=== PATIENT | female | born 1955 | race Caucasian/White ===

== ENCOUNTER 2017-09-19 08:00 | Outpatient (RCR) | payer MEDICARE ==
[2015-05-19 08:28] VITALS: Ht 172.7 cm; Wt 53.5 kg
[~2017-09-19] VITALS: Ht 172.7 cm; Wt 53.5 kg
[~2017-09-19 08:00] MED LIST: ACET-2043; ALBU8.5H IH; ALP25 PO; ALPR-434 PO; ASP325 PO; AUG875 PO; BACL-1; CALC-762 PO; CEP250 PO; CIPR-214 PO; CITA-139 PO; CITA-156 PO; CLI150 PO; CLON-294 PO; CLON-303 *; CLON-303 PO; CLON-308; CLON-308 PO; CLON-390 PO; DIPH-543 PO; FURO-45 PO; FURO-47 PO; GABA-549; HYDR-2966 PO; HYDR-3166 PO; HYDR-319 PO; HYDR-393 PO; HYDR-4228 PO; HYDR-4309 PO; HYDR1TAB PO; IBU200 PO; IBU600 PO; IBUP-56; IBUPROFEN; KET10 PO; LOPE1LIQ49 PO; LOR10/325 PO; LOR5 PO; LOR5/325 PO; METO-734 PO; METO2.5T15 PO; METR-1 PO; MIR; MIRT-22 PO; MIRT-25; MOM PO; MYLL PO; NITR-105 PO; NYST100040 PO; ONDA-2; ONDA-2 PO; ONDA4TAB PO; ONDA4TAB97 PO; OSC600 PO; PAN40 PO; PANT40TA65 PO; PER PO; PHEN118S56 PO; PHEN200T32 PO; POLY17PO PO; POTA-1 PO; POTA-53 PO; POTA20TA85 PO; POTA20TA94 PO; POTA25TA28 PO; PROAIRPT IH; PROM-110 PO; PROM5SYR PO; SULF-198 PO; TAMS0.4C25 PO; TRAM-420; ZOLP-350 PO; ZOLP-358; ZOLP-358 PO; ZOLP-360; [UNRECOGNIZED DRUG - CODE] PO
[2017-09-19 20:50] VITALS: BP 107/74
[2017-09-20] MEDS ORDERED: ONDANSETRON 4 MG ODT TH SL ONE (20:20)
[2017-09-20] MEDS ORDERED: VANCOMYCIN 1 GM ADDVIAL ONE (21:26)
[2017-09-20] MEDS ORDERED: NS(*) 0.9% 250 ML ADDVAN BAG 250 ML ONE (21:26)
[2017-09-20 21:28] VITALS: BP 109/78
[2017-09-20] MEDS ORDERED: VANCOMYCIN 1 GM ADDVIAL 1 GM in NS(*) 0.9% 250 ML ADDVAN BAG 250 ML IVPB ONE (22:00)
[2017-09-20] MEDS ORDERED: IBUP200C71 PO (22:00)
[2017-09-20] MEDS ORDERED: ACET500T68 PO (22:00)
[2017-09-20] MEDS ORDERED: ALBU8.5H IH (22:00)
== END 2017-11-12 10:29 | disposition home or self-care (01) ==
LOC: SPU 08:00
PROVIDERS: ATTEND Emergency Medicine
DX: L03.90 Cellulitis, unspecified (principal)
CPT/HCPCS: 36415; 80202; J3370; J7050; S0119

== ENCOUNTER 2017-09-19 09:18 | Emergency (ER) | payer MEDICARE ==
[2015-05-19 08:28] VITALS: Wt 53.5 kg
--- NOTE | 2017-09-19 09:31 | ER Report ---
History and Physical Time Seen By MD: 09:29 Hx. of Stated Complaint: Patient puntured hand with pering knife and now reports a red streak. Patient reports diminished sensation in left pointer finger. Visibly swollen on left pointer finger nuckle. HPI/ROS CC: Puncture wound hand possible infection HPI: 62-year-old female with past medical history of cellulitis, insomnia, paranoid schizophrenia, anxiety, failure to thrive, drug-seeking behavior, Elissa, back pain, diarrhea, cholecystitis. Patient presents to the emergency department POV for a puncture wound from a knife last night she was preparing food which also contained dry chicken. Today she has a slight red streak originating from the puncture wound which is over the distal metatarsal carpal of the index finger. No swelling or deformity noted. Slight red streak present approximately 10 cm in length extending centrally towards the wrist. Patient states that she did have a fever and chills last night with nausea but presently she is afebrile. She denies any other complaints. Pain scale is a 2 out of 10. Flexion and extension of all 5 digits of the left hand are present. Sharp dull sensation is present in left hand as it is 2 point discrimination. No numbness or tingling. Patient has multiple allergies. No alleviating factors. ROS: 12 point review of systems essentially negative other than what's mentioned in history of present illness. NURSES AND OLD MEDICAL RECORDS: Reviewed PMH: Reviewed SURGICAL HX: Reviewed FAMILY HX: Noncontributory SOCIAL HX: Denies smoking alcohol or illicit drugs. Lives at home. VITAL SIGNS: Reviewed CONSTITUTIONAL: 62-year-old female in minimal distress. PHYSICAL EXAM: HEENT: Pupils equal round reactive to light and accommodate, Lips dry mucous membranes moist gums nonbleeding uvula midline and rises equally with phonation. NECK: Neck supple, thyroid not appreciated. Trachea midline and rises equally with phonation. CARDIAC: S1-S2 regular rate rhythm no murmurs rubs or gallops. LUNGS: Lungs clear bilaterally posteriorly in all kwong. Good air movement. ABDOMEN: Abdomen soft, nondistended, bowel sounds active in all 4 quadrants. MUSCULOSKELETAL: Strength 5 out of 5 x 4 extremities, no deformities noted. As above in history of present illness left hand. NEUROLOGIC: Patient alert and oriented by 3 Allergies: Coded Allergies: levofloxacin (Verified Allergy, Intermediate, RASH, 07/05/17) pt reported arm red and itchy after starting admin of levaquin meperidine (Verified Allergy, Intermediate, HIVES, 07/05/17) azithromycin (Verified Allergy, Mild, ITCHING, 07/05/17) fentanyl (Verified Allergy, Mild, ITCHING, 07/05/17) iodine (Verified Allergy, Mild, ITCHING, 07/05/17) latex (Verified Allergy, Mild, 07/05/17) morphine (Verified Allergy, Mild, FLUSHING, 07/05/17) trazodone (Verified Allergy, Mild, UNKNOWN, 07/05/17) TACHYCARDIA Penicillins (Verified Allergy, Unknown, 07/05/17) gluten (Verified Adverse Reaction, Intermediate, DIARRHEA, 07/05/17) Influenza Virus Vaccines (Verified Adverse Reaction, Unknown, 09/19/17) Uncoded Allergies: STEROIDS (Allergy, Mild, ITCHING, 08/25/13) ADHESIVES (Allergy, Unknown, 04/30/14) DAIRY,WHEAT AND GLUTEN, BANANAS (Allergy, Unknown, 04/30/14) flu vaccine (Adverse Reaction, Unknown, 07/20/14) Home Meds Discontinued Scripts Ketorolac Tromethamine (KETOROLAC TROMETHAMINE) 10 Mg Tab, 10 MG PO Q6H, #20 TAB Prov:CAMMY [employer]APHIC TECHNICIAN 07/05/17 Hx Smoking: No Smoking Status: Never Smoker Exposure to Second Hand Smoke?: No Hx Substance Use Disorder: No Hx Alcohol Use: Yes Constitutional Vital Sign - Last 24 Hours 09/19/17 09/19/17 09/19/17 09/19/17 09:24 09:30 10:00 10:15 Temp 98.1 Pulse 57 57 51 58 Resp 18 B/P (MAP) 114/84 108/90 (96) 109/68 (82) Pulse Ox 100 97 98 O2 Delivery Room Air 09/19/17 09/19/17 09/19/17 09/19/17 10:30 11:00 11:20 11:25 Pulse 56 53 B/P (MAP) 123/74 (90) 119/75 (90) Pulse Ox 100 99 Medical Decision Making Data Points Result Diagram: 09/19/1748 09/19/17 0948 Laboratory Hematology Test 09/19/17 09:48 09/19/17 11:58 Red Blood Count 4.71 M/uL (4.17-5.56) Mean Corpuscular Volume 91.1 fL (80.0-96.0) Mean Corpuscular Hemoglobin 30.7 pg (26.0-33.0) Mean Corpuscular Hemoglobin Concent 33.6 g/dL (32.0-36.0) Red Cell Distribution Width 13.8 % (11.5-14.5) Mean Platelet Volume 8.0 fL (7.2-11.1) Neutrophils (%) (Auto) 61.1 % (39.4-72.5) Lymphocytes (%) (Auto) 24.9 % (17.6-49.6) Monocytes (%) (Auto) 9.8 % (4.1-12.4) Eosinophils (%) (Auto) 3.8 % (0.4-6.7) Basophils (%) (Auto) 0.4 % (0.3-1.4) Nucleated RBC Relative Count (auto) 0.0 /100WBC Neutrophils # (Auto) 3.9 K/uL (2.0-7.4) Lymphocytes # (Auto) 1.6 K/uL (1.3-3.6) Monocytes # (Auto) 0.6 K/uL (0.3-1.0) Eosinophils # (Auto) 0.2 K/uL (0.0-0.5) Basophils # (Auto) 0.0 K/uL (0.0-0.1) Nucleated RBC Absolute Count (auto) 0.00 K/uL Peripheral Blood Smear No Y/N Sodium Level 139 mmol/L (137-145) Potassium Level 3.2 mmol/L (3.5-5.0) Chloride Level 105 mmol/L (98-107) Carbon Dioxide Level 24 mmol/L (22-31) Blood Urea Nitrogen 19 mg/dl (7-18) Creatinine 1.10 mg/dl (0.52-1.04) Glomerular Filtration Rate Calc 50.5 Random Glucose 86 mg/dl (75-110) Calcium Level 9.4 mg/dl (8.4-10.2) Total Bilirubin 0.5 mg/dl (0.2-1.3) Aspartate Amino Transf (AST/SGOT) 21 U/L (0-35) Alanine Aminotransferase (ALT/SGPT) 29 U/L (0-56) Alkaline Phosphatase 66 U/L (0-126) Total Protein 7.5 gm/dl (6.3-8.2) Albumin 4.3 g/dl (3.5-5.0) Urine Color Yellow Urine Clarity Clear Urine pH 5.0 pH (4.8-9.5) Urine Specific [place] 1.025 Urine Protein Negative mg/dL (NEGATIVE) Urine Glucose (UA) Negative mg/dL (NEGATIVE) Urine Ketones Trace mg/dL (NEGATIVE) Urine Blood Negative (NEGATIVE) Urine Nitrite Negative (NEGATIVE) Urine Bilirubin Negative (NEGATIVE) Urine Urobilinogen Negative mg/dL (0.2-1.9) Urine Leukocyte Esterase Trace (NEGATIVE) Urine RBC None /HPF (0-2/HPF) Urine WBC 7 /HPF (0-5/HPF) Urine Squamous Epithelial Cells Few /LPF (</=FEW) Urine Bacteria Negative /HPF (NONE-FEW) Urine Mucus Few /HPF (NONE-FEW) Urine Opiates Screen Negative Urine Barbiturates Screen Negative Ur Tricyclic Antidepressants Screen Negative Urine Phencyclidine Screen Negative Urine Amphetamines Screen Positive Urine Benzodiazepines Screen Negative Urine Cocaine Screen Negative Urine Cannabinoids Screen Negative Chemistry Test 09/19/17 09:48 09/19/17 11:58 White Blood Count 6.3 k/uL (4.5-11.0) Red Blood Count 4.71 M/uL (4.17-5.56) Hemoglobin 14.4 g/dL (12.0-16.0) Hematocrit 42.9 % (34.0-47.0) Mean Corpuscular Volume 91.1 fL (80.0-96.0) Mean Corpuscular Hemoglobin 30.7 pg (26.0-33.0) Mean Corpuscular Hemoglobin Concent 33.6 g/dL (32.0-36.0) Red Cell Distribution Width 13.8 % (11.5-14.5) Platelet Count 307 K/uL (150-450) Mean Platelet Volume 8.0 fL (7.2-11.1) Neutrophils (%) (Auto) 61.1 % (39.4-72.5) Lymphocytes (%) (Auto) 24.9 % (17.6-49.6) Monocytes (%) (Auto) 9.8 % (4.1-12.4) Eosinophils (%) (Auto) 3.8 % (0.4-6.7) Basophils (%) (Auto) 0.4 % (0.3-1.4) Nucleated RBC Relative Count (auto) 0.0 /100WBC Neutrophils # (Auto) 3.9 K/uL (2.0-7.4) Lymphocytes # (Auto) 1.6 K/uL (1.3-3.6) Monocytes # (Auto) 0.6 K/uL (0.3-1.0) Eosinophils # (Auto) 0.2 K/uL (0.0-0.5) Basophils # (Auto) 0.0 K/uL (0.0-0.1) Nucleated RBC Absolute Count (auto) 0.00 K/uL Peripheral Blood Smear No Y/N Glomerular Filtration Rate Calc 50.5 Calcium Level 9.4 mg/dl (8.4-10.2) Total Bilirubin 0.5 mg/dl (0.2-1.3) Aspartate Amino Transf (AST/SGOT) 21 U/L (0-35) Alanine Aminotransferase (ALT/SGPT) 29 U/L (0-56) Alkaline Phosphatase 66 U/L (0-126) Total Protein 7.5 gm/dl (6.3-8.2) Albumin 4.3 g/dl (3.5-5.0) Urine Color Yellow Urine Clarity Clear Urine pH 5.0 pH (4.8-9.5) Urine Specific [place] 1.025 Urine Protein Negative mg/dL (NEGATIVE) Urine Glucose (UA) Negative mg/dL (NEGATIVE) Urine Ketones Trace mg/dL (NEGATIVE) Urine Blood Negative (NEGATIVE) Urine Nitrite Negative (NEGATIVE) Urine Bilirubin Negative (NEGATIVE) Urine Urobilinogen Negative mg/dL (0.2-1.9) Urine Leukocyte Esterase Trace (NEGATIVE) Urine RBC None /HPF (0-2/HPF) Urine WBC 7 /HPF (0-5/HPF) Urine Squamous Epithelial Cells Few /LPF (</=FEW) Urine Bacteria Negative /HPF (NONE-FEW) Urine Mucus Few /HPF (NONE-FEW) Urine Opiates Screen Negative Urine Barbiturates Screen Negative Ur Tricyclic Antidepressants Screen Negative Urine Phencyclidine Screen Negative Urine Amphetamines Screen Positive Urine Benzodiazepines Screen Negative Urine Cocaine Screen Negative Urine Cannabinoids Screen Negative Toxicology Test 09/19/17 11:58 Urine Opiates Screen Negative Urine Barbiturates Screen Negative Ur Tricyclic Antidepressants Screen Negative Urine Phencyclidine Screen Negative Urine Amphetamines Screen Positive Urine Benzodiazepines Screen Negative Urine Cocaine Screen Negative Urine Cannabinoids Screen Negative Urinalysis Test 09/19/17 11:58 Urine Color Yellow Urine Clarity Clear Urine pH 5.0 pH (4.8-9.5) Urine Specific [place] 1.025 Urine Protein Negative mg/dL (NEGATIVE) Urine Glucose (UA) Negative mg/dL (NEGATIVE) Urine Ketones Trace mg/dL (NEGATIVE) Urine Blood Negative (NEGATIVE) Urine Nitrite Negative (NEGATIVE) Urine Bilirubin Negative (NEGATIVE) Urine Urobilinogen Negative mg/dL (0.2-1.9) Urine Leukocyte Esterase Trace (NEGATIVE) Urine RBC None /HPF (0-2/HPF) Urine WBC 7 /HPF (0-5/HPF) Urine Squamous Epithelial Cells Few /LPF (</=FEW) Urine Bacteria Negative /HPF (NONE-FEW) Urine Mucus Few /HPF (NONE-FEW) ED Course/Re-evaluation ED Course Patient received vancomycin IV. Chest received Benadryl. Patient tolerated therapy well. She also received 40 mEq of Klor-Con for her hypokalemia of 3.2. Patient will be placed on outpatient vancomycin IV therapy for 5 days for her cellulitis. She was very limited choice of antibiotics. Therefore we will use all patient IV therapy. Those orders have been written patient will plan and in agreement. Re-evaluation Medical decision making cellulitis, ostial myelitis. X-ray did not show any bone involvement. This is most likely superficial and soft tissue. Decision to Disposition Date: Sep 19, 2017 Decision to Disposition Time: 12:42 Depart Departure Latest Vital Signs Vital Signs Date Time Temp Pulse Resp B/P (MAP) Pulse Ox O2 Delivery O2 Flow Rate FiO2 09/19/17 11:25 53 99 09/19/17 11:00 119/75 (90) 09/19/17 09:24 98.1 18 Room Air Impression: Primary Impression: Cellulitis Condition: Condition Unchanged Disposition: HOME OR SELF-CARE Referrals: CHARLENE MAYER MD (PCP) New Scripts No Active Prescriptions or Reported Meds Patient Instructions: Cellulitis (ED) Additional Instructions: Vancomycin will be utilized for the next 5 days twice a day as outpatient IV therapy. You will be contacted for ER IV therapy times here in the hospital. Follow-up with your regular physician. I and the staff wanted to thank you for allowing us to take care of your needs today in the emergency department at [facility]. We have tried to answer all of your questions and concerns. Please feel free to return to the emergency department for any further concerns or unanswered questions. Problem Qualifiers Primary Impression: Cellulitis Site of cellulitis: extremity Site of cellulitis of extremity: upper extremity Laterality: left Qualified Codes: L03.114 - Cellulitis of left upper limb JOSE LUIS BAEZ MD Sep 19, 2017 09:31
[2017-09-19] MEDS ORDERED: LR(*) 1000 ML BAG 1,000 ML IV ONE (09:37)
[2017-09-19] MEDS ORDERED: diphenhydrAMINE 50 MG/ML VIAL IVP ONE (09:40)
[2017-09-19] MEDS ORDERED: DIPHTH/TETANUS/ACEL. PERTUSSIS IM ONLY ONE (09:40)
[2017-09-19] MEDS ORDERED: VANCOMYCIN 1 GM ADDVIAL 1 GM in NS(*) 0.9% 250 ML ADDVAN BAG 250 ML IVPB ONE ×2 (09:40→21:00)
[2017-09-19 09:58] LABS: PLATELET COUNT, AUTOMATED 307 K/uL (150-450)
[2017-09-19] MEDS ORDERED: VANCOMYCIN(*) 1 GM VIAL 1 GM, VANCOMYCIN (*) 0.5 GM VIAL 0.5 GM in NS(*) 0.9% 250 ML BA... IVPB ONE (10:15)
--- NOTE | 2017-09-19 10:55 | RADIOLOGY IMAGING REPORT ---
FACILITY: [facility] - [place] PATIENT NAME: Candy Wilder : 1955 MR: [id number] V: [id number] EXAM DATE: ORDERING PHYSICIAN: JOSE LUIS BAEZ TECHNOLOGIST: Location: [facility] [place] Patient: Candy Wilder : 1955 Visit/Account:[id number] Date of Sevice: 09/19/2017 Exam type: HAND COMPLETE LEFT History: trauma Comparison: None. Findings: There is no evidence of acute fracture or dislocation involving the left hand. No radiopaque soft ti ssue foreign bodies are seen. Incidentally noted is mild calcification of the triangle fibrocartilag e. IMPRESSION: 1. No evidence of acute fracture-dislocation involving the left hand Report Dictated By: Lolly Ghosh MD at 09/19/2017 10:49 AM Report E-Signed By: Lolly Ghosh MD at 09/19/2017 10:51 AM WSN:[email or web address]
[2017-09-19] MEDS ORDERED: ACETAMINOPHEN 500 MG TAB PO ONE (11:40)
[2017-09-19] MEDS ORDERED: POTASSIUM CHL PWDR 20 MEQ PKT PO ONE (12:40)
[2017-09-19 12:58] VITALS: BP 119/81
[2017-09-19] MEDS ORDERED: NS(*) 0.9% 250 ML BAG 250 ML ONE (20:22)
[2017-09-20] MEDS ORDERED: ONDANSETRON 4 MG ODT TABDP SL ONE (21:19)
[2017-09-20] MEDS ORDERED: IBUP200C71 PO (22:00)
[2017-09-20] MEDS ORDERED: ACET500T68 PO (22:00)
[2017-09-20] MEDS ORDERED: ALBU8.5H IH (22:00)
== END 2017-09-20 13:16 | disposition home or self-care (01) ==
LOC: ER 09:32
DX: L03.114 Cellulitis of left upper limb (principal); W26.0XXA Contact with knife, initial encounter
CPT/HCPCS: 36415; 73130; 80305; 81001; 85025; 87040; 90471; 90715; 96361; 96365; 96366; 96375; 99284; A9270; J1200; J3370; J7050; J7120; 82040; 82247; 82310; 82374; 82435; 82565; 82947; 84075; 84132; 84155; 84295; 84450; 84460; 84520

== ENCOUNTER 2017-09-21 08:48 | Emergency (ER) | payer MEDICARE ==
[2015-05-19 08:28] VITALS: Wt 53.5 kg
[~2017-09-21 08:48] MED LIST changes: +ACET500T68 PO; +IBUP200C71 PO
--- NOTE | 2017-09-21 09:10 | ER Report ---
History and Physical Time Seen By MD: 09:09 Hx. of Stated Complaint: Patient reports an allergic reaction to vancomycin last night. Numbness and tingling. Was instructed to come back to ER for evaluation the following morning. HPI/ROS CC: Allergic reaction HPI: 62-year-old female with a past medical history of paranoid schizophrenia, multiple allergies to all medications and antibiotics, insomnia, cellulitis of the left hand, kidney stones, hypokalemia, most recently was treated 2 days ago in the emergency department for cellulitis of the left hand after she had punctured her hand with a paring knife while cleaning vegetables and chicken. She was then placed on vancomycin. In the emergency department she did not react to the vancomycin she was then placed on outpatient vancomycin. She reportedly had numbness tingling of her arms and hands and also circled oral with the feeling of swelling of the tongue. Vancomycin was stopped and she was told to come to the emergency department. He is a poor historian in that her story does not seem to be consistent. She does have slight swelling and cellulitic residual of that left hand over the distal metacarpal at the PIP. It does appear to be somewhat better but remains with swelling with less redness. She is rating her pain in the left hand as a 5 out of 10 throbbing in nature. I reviewed all medications penicillins, erythromycins, doxycycline, fluoroquinolones, sulfa and she appears to be allergic to all of them. I told her we would try Rocephin IM as she is unaware of cephalosporins. I am in a quandary as to how to treat this individual. ROS: 12 point review of systems essentially negative other than what's mentioned in history of present illness. NURSES AND OLD MEDICAL RECORDS: Reviewed PMH: Reviewed SURGICAL HX: Reviewed FAMILY HX: Noncontributory SOCIAL HX: Patient denies smoking alcohol or illicit drugs. VITAL SIGNS: Reviewed CONSTITUTIONAL: 62-year-old female in minimal distress PHYSICAL EXAM: HEENT: Pupils equal round reactive to light and accommodate, EOMI, tympanic membranes pearly white umbo present with good light reflex. Lips dry mucous membranes moist gums nonbleeding uvula midline and rises equally with phonation, oropharynx noninjected, teeth intact. NECK: Neck supple, thyroid not appreciated, anterior and posterior cervical lymphadenopathy not appreciated. Trachea midline and rises equally with phonation. CARDIAC: S1-S2 regular rate rhythm no murmurs rubs or gallops. LUNGS: Lungs clear bilaterally posteriorly in all kwong. Good air movement. ABDOMEN: Abdomen soft, nondistended, bowel sounds active in all 4 quadrants, no bruits noted, no CVA tenderness. MUSCULOSKELETAL: Strength 5 out of 5 x 4 extremities, no deformities noted. Swelling of left hand as above in history of present illness. NEUROLOGIC: Patient alert and oriented by 3 Allergies: Coded Allergies: levofloxacin (Verified Allergy, Intermediate, RASH, 07/05/17) pt reported arm red and itchy after starting admin of levaquin meperidine (Verified Allergy, Intermediate, HIVES, 07/05/17) azithromycin (Verified Allergy, Mild, ITCHING, 07/05/17) fentanyl (Verified Allergy, Mild, ITCHING, 07/05/17) iodine (Verified Allergy, Mild, ITCHING, 07/05/17) latex (Verified Allergy, Mild, 07/05/17) morphine (Verified Allergy, Mild, FLUSHING, 07/05/17) trazodone (Verified Allergy, Mild, UNKNOWN, 07/05/17) TACHYCARDIA Penicillins (Verified Allergy, Unknown, 07/05/17) gluten (Verified Adverse Reaction, Intermediate, DIARRHEA, 07/05/17) Influenza Virus Vaccines (Verified Adverse Reaction, Unknown, 09/19/17) vancomycin (Unverified Adverse Reaction, Unknown, 09/21/17) Patient reports numbness and tingling in her lips after IV infusion. Uncoded Allergies: STEROIDS (Allergy, Mild, ITCHING, 08/25/13) ADHESIVES (Allergy, Unknown, 04/30/14) DAIRY,WHEAT AND GLUTEN, BANANAS (Allergy, Unknown, 04/30/14) flu vaccine (Adverse Reaction, Unknown, 07/20/14) Home Meds Reported Medications Ibuprofen (IBUPROFEN) 200 Mg Capsule, 2 CAP PO Q6H, CAPSULE 09/20/17 Acetaminophen (TYLENOL EXTRA STRENGTH) 500 Mg Tablet, 500 MG PO, TAB 09/20/17 Albuterol Sulfate 90 Mcg/Act (PROAIR HFA 90 MCG/ACT) 8.5 Gm Hfa.aer.ad, 2 PUFF IH Q4-6H, INHALER 09/20/17 Discontinued Scripts Ketorolac Tromethamine (KETOROLAC TROMETHAMINE) 10 Mg Tab, 10 MG PO Q6H, #20 TAB Prov:CAMMY [employer] 07/05/17 Hx Smoking: No Smoking Status: Never Smoker Exposure to Second Hand Smoke?: No Hx Substance Use Disorder: No Hx Alcohol Use: Yes Constitutional Vital Sign - Last 24 Hours 09/21/17 09/21/17 09/21/17 09/21/17 08:54 08:56 09:00 09:03 Temp 98.2 Pulse 62 Resp 20 B/P (MAP) 112/77 (89) 112/77 107/70 (82) Pulse Ox 100 98 O2 Delivery Room Air 09/21/17 09/21/17 09/21/17 09/21/17 09:18 09:30 09:33 10:00 Pulse 59 58 B/P (MAP) 102/72 (82) 119/80 (93) Pulse Ox 98 09/21/17 09/21/17 09/21/17 10:08 10:23 10:30 Pulse 55 B/P (MAP) 109/72 (84) Pulse Ox 97 96 Medical Decision Making ED Course/Re-evaluation ED Course Patient received 1 g of Rocephin IM. Waited an hour. Patient is not having any allergic reactions to thiamine injection. Injection site is not red and tender or inflamed. Patient will receive outpatient IM Rocephin Re-evaluation Medication allergy Decision to Disposition Date: Sep 21, 2017 Decision to Disposition Time: 11:29 Depart Departure Latest Vital Signs Vital Signs Date Time Temp Pulse Resp B/P (MAP) Pulse Ox O2 Delivery O2 Flow Rate FiO2 09/21/17 10:30 109/72 (84) 09/21/17 10:23 96 09/21/17 10:08 55 09/21/17 08:56 98.2 20 Room Air Impression: Primary Impression: Allergy to antibiotic Additional Impression: Cellulitis Condition: Condition Unchanged Disposition: HOME OR SELF-CARE Referrals: CHARLENE MAYER MD (PCP) Patient Instructions: Antibiotic Medication Allergy (ED) Additional Instructions: Follow-up for Rocephin IM injections. Follow-up with your regular physician in 2 days on 09/23/2017. Problem Qualifiers Additional Impression: Cellulitis Site of cellulitis of extremity: finger Laterality: left JOSE LUIS BAEZ MD Sep 21, 2017 09:10
[2017-09-21] MEDS: cefTRIAXone 1 GM VIAL IM ONE (09:55)
[2017-09-21] MEDS: LIDOCAINE 1% MDV 200 MG/20 ML INJ ONE (09:55)
[2017-09-21 11:33] VITALS: BP 124/77
== END 2017-09-21 11:35 | disposition home or self-care (01) ==
LOC: ER 08:58
DX: T36.8X5A Adverse effect of other systemic antibiotics, initial encounter (principal); L03.012 Cellulitis of left finger
CPT/HCPCS: 96372; 99283; J0696; J2001

== ENCOUNTER 2017-09-25 11:00 | Outpatient (RCR) | payer MEDICARE ==
[2015-05-19 08:28] VITALS: Ht 170.2 cm
[2017-09-19 22:43] VITALS: BP 105/69
[2017-09-20 08:55] VITALS: BP 102/74
[2017-09-22 09:23] VITALS: BP 116/79
[2017-09-22] MEDS: cefTRIAXone 1 GM VIAL IM SCH (09:29)
[2017-09-22 10:33] VITALS: BP 99/64
[2017-09-23] MEDS: cefTRIAXone 1 GM VIAL IM SCH (10:50)
[2017-09-24] MEDS: cefTRIAXone 1 GM VIAL IM SCH (12:38)
[~2017-09-25] VITALS: Ht 170.2 cm
[~2017-09-25 11:00] MED LIST changes: +VANCOMYCIN 1 GM ADDVIAL 1 GM in NS(*) 0.9% 250 ML ADDVAN BAG 250 ML IVPB ONE
[2017-09-25 11:32] VITALS: BP 108/77
[2017-09-25] MEDS: cefTRIAXone 1 GM VIAL IM SCH (11:32)
== END 2017-11-12 10:29 | disposition home or self-care (01) ==
LOC: SPU 11:00
PROVIDERS: ATTEND Emergency Medicine
DX: L03.90 Cellulitis, unspecified (principal)
CPT/HCPCS: 96365; 96372; J0696; J3370; J7050; 36415; 80202; 96366; S0119

== ENCOUNTER → 2018-05-15 | Outpatient (CLI) | payer MEDICARE, MEDICAID ==
[2015-05-19 08:28] VITALS: BMI 17.2
[~2018-05-15] MED LIST changes: -CITA-139 PO; +CITA-145 PO; -CLON-308; -CLON-308 PO; +CLON-335; +CLON-335 PO; +IBUP-136 PO; -IBUP200C71 PO; -VANCOMYCIN 1 GM ADDVIAL 1 GM in NS(*) 0.9% 250 ML ADDVAN BAG 250 ML IVPB ONE
--- NOTE | 2018-05-15 15:10 | RADIOLOGY IMAGING REPORT ---
FACILITY: [facility] PATIENT NAME: Candy Wilder : 1955 MR: [id number] V: [id number] EXAM DATE: ORDERING PHYSICIAN: JUAN M CARDONA TECHNOLOGIST: Location: [facility] Patient: Candy Wilder : 1955 Visit/Account:[id number] Date of Sevice: 05/15/2018 CERVICAL SPINE 2 OR 3 VIEW HISTORY: Neck pain with history of fusion COMPARISON: MRI 11/03/2012 FINDINGS: AP, lateral and open-mouth odontoid views cervical spine obtained. Sequela of anterior cervical fusion C5-C7 with at least partial bony union, particularly at C5-C6. Mo derate disc degenerative changes C3-C4 and C4-C5. Remaining vertebral body and disc heights well-main tained. No discrete fracture lucency or displacement. Straightening of normal cervical lordosis, not significantly changed from prior exam likely chronic or positional but a finding which can also be s een in the setting of muscular spasm. Prevertebral soft tissues within normal limits. Surgical clips within the neck. IMPRESSION: 1. Straightening of normal cervical lordosis, likely chronic or positional but a finding which can al so be seen in the setting of muscular spasm. 2. Degenerative and postsurgical changes as above. Report Dictated By: Estevan Cartwright MD at 05/15/2018 3:03 PM Report E-Signed By: Estevan Cartwright MD at 05/15/2018 3:07 PM WSN:[id number]
== END ==
LOC: RAD 09:10
PROVIDERS: ATTEND Physician Assistant
DX: M81.0 Age-related osteoporosis without current pathological fracture (principal)
CPT/HCPCS: 72040

== ENCOUNTER → 2018-06-23 | Outpatient (CLI) | payer MEDICARE, MEDICAID ==
[2015-05-19 08:28] VITALS: BMI 17.2
[~2018-06-23] MED LIST changes: +CEFI400C PO; +DOXY-181 PO; +GABA-547 PO; +NAPR220C12 PO
--- NOTE | 2018-06-23 10:18 | RADIOLOGY IMAGING REPORT ---
[place] [facility] [place] Candy Wilder : 1955 MR: [id number] V: [id number] EXAM DATE: ORDERING PHYSICIAN: GIA MORROW TECHNOLOGIST: Location: [facility] [place] Patient: Candy Wilder : 1955 Visit/Account:[id number] Date of Sevice: 06/23/2018 LUMBAR SPINE 2 OR 3 VIEW Indication: Low back pain after accident, Comparison: 04/19/2016 FINDINGS: There are 5 lumbar type vertebral bodies. There is no acute osseous or acute alignment abnormality. Reidentified is diffuse moderate multilevel degenerative disc space disease. Disc space narrowing is greatest at L4-5 and L5-S1. Mild marginal osteophytes are noted. The vertebral body heights appear well-maintained. IMPRESSION: 1. Stable moderate multilevel degenerative disc space disease, no acute abnormality Report Dictated By: Bradford Verduzco at 06/23/2018 9:56 AM Report E-Signed By: Bradford Verduzco at 06/23/2018 10:15 AM WSN:[id number]
== END ==
LOC: RAD 09:12
PROVIDERS: ATTEND Nurse Practitioner Family
DX: M51.36 Other intervertebral disc degeneration, lumbar region (principal)
CPT/HCPCS: 72100

== ENCOUNTER → 2018-06-29 | Outpatient (CLI) | payer MEDICARE, MEDICAID ==
[2015-05-19 08:28] VITALS: BMI 17.2
--- NOTE | 2018-06-29 13:45 | RADIOLOGY IMAGING REPORT ---
FACILITY: [facility] - [place] PATIENT NAME: Candy Wilder : 1955 MR: [id number] V: [id number] EXAM DATE: ORDERING PHYSICIAN: GIA MORROW TECHNOLOGIST: Location: [facility] Patient: Candy Wilder : 1955 Visit/Account:[id number] Date of Sevice: 06/29/2018 EXAMINATION: MRI Lumbar spine without intravenous contrast HISTORY: Lumbar radiculopathy. COMPARISON: Lumbar spine radiographs dated 06/23/2018. Lumbar spine MRI dated 01/12/2014. TECHNIQUE: Multi-planar, multi-sequence lumbar spine MRI was performed without intravenous contrast administration. FINDINGS: Alignment: Normal. Vertebral marrow signal: Multiple small foci of T1 hypointense bone marrow signal, new compared with 01/12/2014. Distal thoracic cord: Negative. Conus: negative, terminates at L1-L2 Cauda equina: Negative. Paravertebral soft tissues: Negative. Visualized abdominal and pelvic structures: Negative. Disc Spaces: Lower thoracic spine: Negative. L1-2: Circumferential disc bulge, facet hypertrophy, and ligamentum flavum thickening. No significant stenosis. No significant change. L2-3: Mild to moderate disc height loss with circumferential disc bulge, facet hypertrophy, and ligam entum flavum thickening. No significant spinal canal stenosis. Mild bilateral neural foraminal stenos is. No significant change. L3-4: Circumferential disc bulge, facet hypertrophy, and ligamentum flavum thickening. No significant spinal canal stenosis. Mild right and moderate left neural foraminal stenosis. No significant change . L4-5: Circumferential disc bulge, facet hypertrophy, and ligamentum flavum thickening. Mild spinal ca nal stenosis. Moderate bilateral neural foraminal stenosis. Decreased spinal canal stenosis. Otherwis e no significant change. L5-S1: Circumferential disc bulge and facet hypertrophy. Right hemilaminectomy. No significant spinal canal stenosis. Mild left and moderate right neural foraminal stenosis. No significant change. IMPRESSION: 1. Multiple small foci of T1 and T2 hypointense bone marrow signal are new compared with 01/12/2014. T he differential includes metastasis, red marrow, and myelofibrosis/myelodysplasia. 2. Multilevel degenerative disc disease and facet hypertrophy with postsurgical changes at L5-S1. Report Dictated By: Daljit Stevenson MD at 06/29/2018 1:33 PM Report E-Signed By: Daljit Stevenson MD at 06/29/2018 1:41 PM WSN:[email or web address]
== END ==
LOC: MRI 07:15
PROVIDERS: ATTEND Nurse Practitioner Family
DX: M47.817 Spondylosis without myelopathy or radiculopathy, lumbosacral region (principal)
CPT/HCPCS: 72148

== ENCOUNTER → 2018-07-07 | Outpatient (CLI) | payer MEDICARE, MEDICAID ==
[2015-05-19 08:28] VITALS: BMI 17.2
[~2018-07-07] MED LIST changes: +HYDR-385 PO; -HYDR-4309 PO; +HYDR-653 PO
[2018-07-07 10:01] LABS: PLATELET COUNT, AUTOMATED 314 K/uL (150-450)
== END ==
LOC: LAB 09:20
PROVIDERS: ATTEND Nurse Practitioner Family
DX: R89.8 Other abnormal findings in specimens from other organs, systems and tissues (principal)
CPT/HCPCS: 36415; 82040; 82247; 82310; 82374; 82435; 82565; 82947; 84075; 84132; 84155; 84160; 84165; 84295; 84450; 84460; 84520; 85007; 85027

== ENCOUNTER → 2018-07-15 | Outpatient (CLI) | payer MEDICARE, MEDICAID ==
[2015-05-19 08:28] VITALS: BMI 17.2
--- NOTE | 2018-07-16 09:58 | RADIOLOGY IMAGING REPORT ---
FACILITY: [facility] PATIENT NAME: Candy Wilder : 1955 MR: [id number] V: [id number] EXAM DATE: ORDERING PHYSICIAN: GIA MORROW TECHNOLOGIST: Location: [facility] [place] Patient: Candy Wilder : 1955 Visit/Account:[id number] Date of Sevice: 07/15/2018 ADDENDUM #1 Since the patchy isotope uptake in the tibias is nonspecific plain film correlation may be helpful. Report Dictated By: Lolly Ghosh MD at 07/16/2018 10:08 AM Report E-Signed By: Lolly Ghosh MD at 07/16/2018 10:08 AM ORIGINAL REPORT WHOLE BODY BONE SCAN HISTORY: abnormal bone marrow on MRI consider metastasis TECHNIQUE: 25.4 mCi technetium 99m HDP was injected intravenously. Delayed anterior and posterior wh ole body gamma camera images were obtained. Additional gamma camera images: Right left lateral skull COMPARISON: MR the lumbar spine June 29, 2018 FINDINGS: Bone radiotracer activity: There is a small focal area of isotope uptake seen left-sided the sternum appears nonspecific. There is faint isotope uptake over the left side of the lower lumbar spine likely degenerative in kayden ure There is increased ASP uptake seen in the proximal diaphyses of both femurs likely related to the krzysztof ateral hip arthroplasties. Isotope uptake over the right greater trochanter also likely related to t he prior surgery. There is mottled uptake seen in the tibias bilaterally. The appearance is nonspecific and may be rel ated to reactive changes if the patient has venous insufficiency. Clinical correlation needed Extraosseous radiotracer activity: Unremarkable. Renal and urinary collecting system activity: Unremarkable. IMPRESSION: Probable degenerative type uptake seen in the lower lumbar spine Postsurgical changes from bilateral hip arthroplasties Faint uptake in the left side of the sternum, nonspecific in nature may be related to prior trauma. Plain film correlation may be helpful Mottled uptake seen in the tibias bilaterally. Appearance is nonspecific may be reactive if the lorri ent has venous insufficiency. Clinical correlation needed Report Dictated By: Lolly Ghosh MD at 07/16/2018 9:52 AM Report E-Signed By: Lolly Ghosh MD at 07/16/2018 9:55 AM WSN:[email or web address]
== END ==
LOC: NUC 01:46
PROVIDERS: ATTEND Nurse Practitioner Family
DX: M47.896 Other spondylosis, lumbar region (principal); Z96.643 Presence of artificial hip joint, bilateral; I87.2 Venous insufficiency (chronic) (peripheral)
CPT/HCPCS: 78306; A9503

== ENCOUNTER 2018-07-28 01:32 | Outpatient (RCR) | payer MEDICARE, MEDICAID ==
[2015-05-19 08:28] VITALS: BMI 17.2
[2018-07-28] MEDS ORDERED: GADOBENATE 529MG/1ML 15ML VIAL IVP ONE (10:13)
--- NOTE | 2018-07-28 12:57 | RADIOLOGY IMAGING REPORT ---
[place] [facility] [place]: Candy Wilder : 1955 MR: [id number] V: [id number] EXAM DATE: ORDERING PHYSICIAN: GIA MORROW TECHNOLOGIST: Location: [facility] [place] Patient: Candy Wilder : 1955 Visit/Account:[id number] Date of Sevice: 07/28/2018 PELVIS W W/O CONTRAST COMPARISON: MRI lumbar spine without contrast June 29, 2018. HISTORY: abnormal marrow on MRI - consider Mets. Numerous new bone lesions on prior lumbar spine MR I, differential considerations of metastasis, red marrow and myelofibrosis/myelodysplasia. TECHNIQUE: Pre and postcontrast multiplanar MRI of the hips utilizing T1 weighted and fluid sensitive sequences. CONTRAST: 10 mL MultiHance intravenously. FINDINGS: Innumerable intermediate to low T1/intermediate to bright T2 foci throughout the bones of the lower s pine, pelvis and present to a lesser degree within the sacrum. These demonstrate mild apparent enhan cement. This imparts a "stippled" marrow pattern consisting of innumerable lesions measuring, mostly only one-2 mm in size with a couple of lesions measuring slightly larger for example a 5 mm lesion i n the right iliac wing series 5 image 11, and a 4 mm lesion in the right ischial tuberosity series 5 image 33. This pattern remains nonspecific with the same differential considerations. s difficult t o assess for lesions in the proximal femurs marked susceptibility artifact from bilateral hip prosthe ses which mostly obscured the femoral marrow and partially obscure the acetabula. No acute fractures. Alignment is normal. The sacroiliac joints and pubic symphysis are unremarkable. There is no hip effusion, iliopsoas or trochanteric bursitis. There is no muscle atrophy or edema. The visualized tendinous origins and tendinous insertions of the gluteal and iliopsoas muscles, as we ll as the origins of the hamstrings, quadriceps and adductor muscle groups are intact. No intrapelvic visceral abnormalities are seen. IMPRESSION: 1. Innumerable small foci of abnormal marrow signal throughout the the pelvis and visualized lower l umbar spine, present to a lesser degree in the sacrum. This causes a "stippled" marrow pattern which is very similar to that seen on previous lumbar spine MRI. Differential considerations are stable a lthough I would argue that this pattern is somewhat atypical for red marrow reconversion and metastas is or myelodysplasia is therefore favored. 2. No acute fractures. 3. Bilateral hip prostheses without appreciable, location. Report Dictated By: Law Yip at 07/28/2018 12:35 PM Report E-Signed By: Law Yip at 07/28/2018 12:53 PM WSN:[email or web address]
[2018-07-29] MEDS ORDERED: HYDR-385 PO (11:36)
[2018-07-30] MEDS ORDERED: GABA-547 PO (16:02)
--- NOTE | 2018-07-30 17:55 | RADIOLOGY IMAGING REPORT ---
[place] [facility] [place] NAME: Candy Wilder : 1955 MR: [id number] V: [id number] EXAM DATE: ORDERING PHYSICIAN: GIA MORROW TECHNOLOGIST: Location: [facility] Patient: Candy Wilder : 1955 Visit/Account:[id number] Date of Sevice: 07/30/2018 CHEST W W/O CONTRAST COMPARISON: Lumbar spine MRI June 29, 2018, MRI pelvis August 07, 2018. HISTORY: abnormal marrow on MRI - consider Mets. TECHNIQUE: Multiplanar MRI of the chest utilizing T1 weighted and fluid sensitive sequences with and without IV gadolinium CONTRAST: 10 mL MultiHance intravenously. FINDINGS: BONES : Please note that assessment for thoracic spine lesions is somewhat limited on a large field- of-view study of the chest where there is inherent respiratory motion, and where a body coil is used rather than a spine coil. Thoracic spine MRI is more sensitive for detection and characterization of bone lesions. With this noted, there is a stippled appearance of the marrow throughout the thoracic vertebra which is not evident on the coronal or sagittal series but it is seen on the axial T1-weighted series witho ut fat saturation. It is diffuse and when accounting for expected decreased conspicuity in a scan of this type, it is probably the same as that seen in the lumbar spine. There is too much motion to ass ess for enhancement. Assessment of ribs is significantly more limited because of respiratory motion artifact. No gross marrow abnormality is seen in the ribs. FLUID: No appreciable effusion or drainable fluid collection. SOFT TISSUES: No muscle atrophy or edema. OTHER: 1 cm lobulated cyst in the right lobe of the liver.. IMPRESSION: Stippled marrow pattern throughout the thoracic spine which is very similar to the pattern seen on re cent lumbar spine MRI and pelvic MRI, with unchanged differential considerations. It is significantl y less conspicuous than the previous studies because of technique and multifocal small lesion size. Please note that thoracic spine MRI is more sensitive for detection and characterization of spinal tamara ne lesions. Report Dictated By: Law Yip at 07/30/2018 5:41 PM Report E-Signed By: Law Yip at 07/30/2018 5:50 PM WSN:[email or web address]
[2018-08-04] MEDS ORDERED: GABA-547 PO (13:43)
[2018-08-04] MEDS ORDERED: HYDR-385 PO (13:43)
[2018-08-04] MEDS ORDERED: POTA20TA85 PO (15:02)
== END 2018-07-30 18:00 | disposition home or self-care (01) ==
LOC: MRI 01:32 → EDSTATUS 13:52 → MRI 07-30 18:00
PROVIDERS: ATTEND Nurse Practitioner Family
DX: R89.8 Other abnormal findings in specimens from other organs, systems and tissues (principal); Z96.643 Presence of artificial hip joint, bilateral
CPT/HCPCS: 71552; 72197; A9577

== ENCOUNTER → 2018-08-04 | Outpatient (CLI) | payer MEDICARE, MEDICAID ==
[2015-05-19 08:28] VITALS: BMI 17.2
[2018-08-04 14:28] LABS: PLATELET COUNT, AUTOMATED 340 K/uL (150-450)
== END ==
LOC: LAB 13:49
PROVIDERS: ATTEND Nurse Practitioner Family
DX: R11.2 Nausea with vomiting, unspecified (principal); E87.6 Hypokalemia; R89.8 Other abnormal findings in specimens from other organs, systems and tissues; R10.816 Epigastric abdominal tenderness
CPT/HCPCS: 36415; 82040; 82150; 82247; 82310; 82374; 82435; 82565; 82947; 83690; 84075; 84132; 84155; 84295; 84450; 84460; 84520; 85007; 85027

== ENCOUNTER 2018-08-28 10:37 | Outpatient (RCR) | payer MEDICAID, MEDICARE ==
[2015-05-19 08:28] VITALS: Ht 166.4 cm; Wt 52.4 kg
[2018-08-07 10:33] VITALS: BP 115/78
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
--- NOTE | 2018-08-17 12:59 | NUR ---
Patient called today requesting more pain medications. The prescription was originally filled by Gwendolyn Longoria NP so I called her office and asked if they wouldn't mind continuing to refill/monitor her pain meds. Spoke with ALEJANDRO Triplett and she said that was fine and that she would let Gwendolyn know as well as call Candy back and let her know. Pt reports the pain is increasing slightly, but that she remains taking only 1 tab every 6 hours. She is nauseated and vomiting. She states that she did have some blood in her vomit, so she stopped the gabapentin. She denies taking any meds currently for nausea and that she did take Zofran at one time, but isn't right now. Patient also states that her temp is running low and she can't seem to warm up. I offered pt an appt to see the WEB OFFSET PRESS FEEDER, she declined and states that she is very happy with her consult with Oralia and will await the results from the biopsy that is soon to be done.
[~2018-08-28] VITALS: Ht 166.4 cm; Wt 52.4 kg
[2018-08-28 11:26] VITALS: BP 110/73
[2018-08-28] MEDS ORDERED: SODI50DR3 NS (11:29)
[2018-08-28] MEDS ORDERED: DIPH-740 PO (11:29)
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
[2018-09-04] MEDS ORDERED: TRAM-420 PO (16:14)
[2018-09-21] MEDS ORDERED: HYDR-385 PO (12:18)
[2018-10-09] MEDS ORDERED: POTA20TA85 PO (12:01)
[2018-10-09] MEDS ORDERED: PROM12.556 PO (12:01)
[2018-10-13] MEDS ORDERED: HYDR-385 PO (10:26)
[2018-10-22] MEDS ORDERED: HYDR-385 PO ×3 (08:38→12:59)
[2018-10-22] MEDS ORDERED: IPRA3AMP10 IH (10:12)
[2018-10-22] MEDS ORDERED: OXYGENHOME INH (11:54)
== END 2018-10-26 13:03 | disposition home or self-care (01) ==
LOC: ONC 10:37
PROVIDERS: ATTEND Internal Medicine Hematology
DX: M89.9 Disorder of bone, unspecified (principal); K92.0 Hematemesis
CPT/HCPCS: G0463 ×2; 99202; 99212

== ENCOUNTER → 2018-10-09 | Outpatient (CLI) | payer MEDICARE, MEDICAID ==
[2015-05-19 08:28] VITALS: BMI 17.2
[~2018-10-09] MED LIST changes: +DIPH-740 PO; +PROM12.556 PO; +SODI50DR3 NS; +TRAM-420 PO
[2018-10-09 10:54] LABS: PLATELET COUNT, AUTOMATED 285 K/uL (150-450)
--- NOTE | 2018-10-09 10:54 | EKG ---
FACILITY: [facility] - [place] PATIENT NAME: ROHAN PALOMINO : [id number] MR: [id number] V: [id number] EXAM DATE: ORDERING PHYSICIAN: GIA MORROW TECHNOLOGIST: ELLIOTT Test Reason : PRE SURGICAL Blood Pressure : / mmHG Vent. Rate : 050 BPM Atrial Rate : 050 BPM P-R Int : 198 ms QRS Dur : 082 ms QT Int : 488 ms P-R-T Axes : 078 051 040 degrees QTc Int : 444 ms Sinus bradycardia Nonspecific ST and T wave abnormality Abnormal ECG When compared with ECG of 25-FEB-2017 09:12, premature supraventricular complexes are no longer present Criteria for Septal infarct are no longer present Referred By: ODALYS Confirmed By:
--- NOTE | 2018-10-09 11:53 | RADIOLOGY IMAGING REPORT ---
FACILITY: [facility] - [place] PATIENT NAME: Candy Wilder : 1955 MR: [id number] V: [id number] EXAM DATE: ORDERING PHYSICIAN: GIA MORROW TECHNOLOGIST: [place] [facility] [place] Candy Wilder : 1955 Visit/Account:[id number] Date of Sevice: 10/09/2018 CAROTID HISTORY: Dizziness COMPARISON: None. FINDINGS: Grayscale, duplex and color Doppler interrogation of the extracranial carotid and vertebral arteries was performed bilateral. On the right, peak systolic velocities within the common and internal carotid arteries are 117 and 12 4 cm/sec respectively. There is mild intimal thickening in the right common carotid artery with a ve ry small amount of soft plaque right carotid bulb and proximal right internal carotid artery. Antegr kendra flow within the common, internal and external carotid arteries as well as vertebral artery. ICA/C CA ratio 1.6. On the left, peak systolic velocities within the common and internal carotid arteries are 92.5 and 10 9 cm/sec respectively. There is mild intimal thickening in the left common carotid artery. Antegrad e flow within the common, internal and external carotid arteries as well as vertebral artery. ICA/CCA ratio 1.2. IMPRESSION: There is mild intimal thickening in the common carotid arteries bilaterally and a very small amount o f soft plaque right carotid bulb extending into the proximal right internal carotid artery although n o hemodynamically significant lesions are identified by velocity criteria Velocity criteria are extrapolated from diameter data as defined by the Society of Radiologists in [place] [facility] Consensus Conference Radiology 2003; 229;340-346 Report Dictated By: Lolly Ghosh MD at 10/09/2018 11:44 AM Report E-Signed By: Lolly Ghosh MD at 10/09/2018 11:46 AM WSN:[email or web address]
--- NOTE | 2018-10-09 12:58 | RADIOLOGY IMAGING REPORT ---
FACILITY: [facility] PATIENT NAME: Candy Wilder : 1955 MR: [id number] V: [id number] EXAM DATE: ORDERING PHYSICIAN: GIA MORROW TECHNOLOGIST: Location: [facility] [place] Patient: Candy Wilder : 1955 Visit/Account:[id number] Date of Sevice: 10/09/2018 Exam type: SACRUM & COCCYX History: Sacral pain, fell on ice one week ago Comparison: None. Findings: On the lateral view there is mild diastases between the distal coccygeal segment with slight dorsal d isplacement. This may represent an acute posttraumatic deformity given the clinical history. There also appears to be lucency with indistinct cortical margins along the posterior aspect of the next mo st superior segment. Incidentally noted are incompletely imaged bilateral hip arthroplasties IMPRESSION: 1. There is mild diastases between the distal coccygeal segments with slight dorsal displacement of the distal segment. This may represent an acute posttraumatic deformity given the clinical history. There also appears to be lucency with indistinct cortical margins along the posterior aspect of the next most superior coccygeal segment. Report Dictated By: Lolly Ghosh MD at 10/09/2018 12:48 PM Report E-Signed By: Lolly Ghosh MD at 10/09/2018 12:50 PM WSN:[email or web address]
== END ==
LOC: LAB 10:15
PROVIDERS: ATTEND Nurse Practitioner Family
DX: I65.23 Occlusion and stenosis of bilateral carotid arteries (principal); R94.31 Abnormal electrocardiogram [ECG] [EKG]; E87.6 Hypokalemia; R11.2 Nausea with vomiting, unspecified; R42 Dizziness and giddiness; M53.3 Sacrococcygeal disorders, not elsewhere classified
CPT/HCPCS: 36415; 72220; 82040; 82247; 82310; 82374; 82435; 82565; 82947; 84075; 84132; 84155; 84295; 84443; 84450; 84460; 84520; 85025; 93880

== ENCOUNTER → 2018-10-12 | Outpatient (CLI) | payer MEDICARE, MEDICAID ==
[2015-05-19 08:28] VITALS: BMI 17.2
== END ==
LOC: LAB 09:14
PROVIDERS: ATTEND Nurse Practitioner Family
DX: E87.6 Hypokalemia (principal); R42 Dizziness and giddiness; R11.2 Nausea with vomiting, unspecified; R45.89 Other symptoms and signs involving emotional state
CPT/HCPCS: 36415; 82310; 82374; 82435; 82565; 82947; 84132; 84295; 84443; 84520

== ENCOUNTER → 2018-10-22 | Outpatient (CLI) | payer MEDICARE, MEDICAID ==
[2015-05-19 08:28] VITALS: BMI 17.2
[~2018-10-22] MED LIST changes: +IPRA3AMP10 IH; +OXYGENHOME INH
== END ==
LOC: LAB 10:17
PROVIDERS: ATTEND Nurse Practitioner Family
DX: Z02.9 Encounter for administrative examinations, unspecified (principal)

== ENCOUNTER → 2018-10-22 | Outpatient (CLI) | payer MEDICARE, MEDICAID ==
[2015-05-19 08:28] VITALS: BMI 17.2
--- NOTE | 2018-10-22 11:08 | RADIOLOGY IMAGING REPORT ---
FACILITY: [facility] PATIENT NAME: Candy Wilder : 1955 MR: [id number] V: [id number] EXAM DATE: ORDERING PHYSICIAN: GIA MORROW TECHNOLOGIST: Location: [facility] - [place] Patient: Candy Wilder : 1955 Visit/Account:[id number] Date of Sevice: 10/22/2018 CHEST PA LAT COMPARISONS: June 22, 2017 ADDITIONAL PERTINENT HISTORY: Shortness of breath and cough FINDINGS: Cardiomediastinal silhouette: Negative. Pulmonary vasculature: Mild atherosclerotic disease of the thoracic aortic arch. Otherwise negative Lung kwong: Minimal background interstitial scarring. Otherwise negative Pleural spaces: Negative. Osseous structures: Patient status post previous anterior interbody fusion of the lower cervical spi ne. Surrounding soft tissues: Patient status post cholecystectomy. IMPRESSION: No evidence of acute cardiopulmonary disease. Report Dictated By: Kishan Bennett MD at 10/22/2018 11:02 AM Report E-Signed By: Kishan Bennett MD at 10/22/2018 11:04 AM WSN:[id number]
[2018-10-22 11:17] LABS: PLATELET COUNT, AUTOMATED 360 K/uL (150-450)
== END ==
LOC: LAB 10:15
PROVIDERS: ATTEND Nurse Practitioner Family
DX: I25.10 Atherosclerotic heart disease of native coronary artery without angina pectoris (principal); R91.8 Other nonspecific abnormal finding of lung field; Z90.49 Acquired absence of other specified parts of digestive tract; Z98.890 Other specified postprocedural states; R05 Cough; R50.9 Fever, unspecified
CPT/HCPCS: 36415; 71046; 82040; 82247; 82310; 82374; 82435; 82565; 82947; 84075; 84132; 84155; 84295; 84450; 84460; 84520; 85025

== ENCOUNTER 2018-11-19 10:30 | Outpatient (RCR) | payer MEDICARE, MEDICAID ==
[2015-05-19 08:28] VITALS: BMI 17.2
[2018-11-20] MEDS ORDERED: HYDR-385 PO (09:56)
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
[2018-12-14] MEDS ORDERED: IBUP-136 PO (09:12)
[2018-12-14] MEDS ORDERED: ACET-1966 PO (09:12)
[2018-12-14] MEDS ORDERED: HYDR-385 PO (15:06)
[2018-12-17 08:29] LABS: PLATELET COUNT, AUTOMATED 304 K/uL (150-450)
[2018-12-18] MEDS ORDERED: HYDR-385 PO (13:50)
[2019-01-29] MEDS ORDERED: HYDR-385 PO (16:00)
[2019-02-19] MEDS ORDERED: HYDR-385 PO (12:50)
== END 2019-02-17 ==
LOC: ONC 10:30
PROVIDERS: ATTEND Internal Medicine Hematology
DX: M89.9 Disorder of bone, unspecified (principal); K92.0 Hematemesis
CPT/HCPCS: 85025; 99212

== ENCOUNTER → 2018-12-14 | Outpatient (CLI) | payer MEDICARE, MEDICAID ==
[2015-05-19 08:28] VITALS: BMI 17.2
[~2018-12-14] MED LIST changes: +ACET-1966 PO
[2018-12-14 10:35] LABS: PLATELET COUNT, AUTOMATED 324 K/uL (150-450)
== END ==
LOC: LAB 10:05
PROVIDERS: ATTEND Internal Medicine
DX: R06.00 Dyspnea, unspecified (principal)
CPT/HCPCS: 36415; 82040; 82247; 82310; 82374; 82435; 82565; 82947; 84075; 84132; 84155; 84295; 84450; 84460; 84520; 85025; 85379

== ENCOUNTER 2018-12-17 02:29 | Day surgery (SDC) | payer MEDICARE, MEDICAID ==
[2015-05-19 08:28] VITALS: Ht 171.4 cm; Wt 51.7 kg
[~2018-12-17] VITALS: Ht 171.4 cm; Wt 51.7 kg
[2018-12-17 07:57] VITALS: BP 119/79
[2018-12-17] MEDS ORDERED: FAMOTIDINE 20 MG/50 ML PREMIX IVPB ONE (08:10)
[2018-12-17] MEDS ORDERED: MIDAZOLAM 2 MG/2 ML VIAL IVP PRN (08:10)
[2018-12-17] MEDS ORDERED: NORMOSOL R SOLN(*) 1000 ML BAG 1,000 ML IV PRN (08:10)
[2018-12-17] MEDS ORDERED: LIDOCAINE/SOD BICARB 8.4% SYR ID ONE (08:10)
[2018-12-17] MEDS ORDERED: PROPOFOL EMUL(*) 10MG/ML 20 ML 20 ML ONE (08:17)
[2018-12-17] MEDS ORDERED: LIDOCAINE 1%MDV(*)200 MG/20 ML 1 ML ONE (08:53)
[2018-12-17] MEDS ORDERED: HEPARIN SOD LCK FLSH 100 UN/ML ONE (08:56)
[2018-12-17 09:26] VITALS: BP 99/77
--- NOTE | 2018-12-17 09:41 | NUR ---
0076 SBAR REPORT WAS RECEIVED FROM DR. ESPOSITO AND WAYLON PUENTE RN. PATIENT IS BREATHING SPONTANEOUSLY AT A MODERATE RATE AND DEPTH. SHE ARRIVED ON 10 LITERS OXYMASK AND THIS WAS MOVED TO 3 LITERS OXYMASK ON ARRIVAL. LUNGS ARE CLEAR. BOWEL SOUNDS ARE HYPERACTIVE. SHE STATES SHE IS HAVING BACK/NECK PAIN 07/01 BUT THIS CHRONIC. DENIES ANY NAUSEA. PATIENT REMAINS IN BED AT THIS TIME [id number] DR. NELSON WAS IN TO SEE PATIENT
--- NOTE | 2018-12-17 09:43 | Short(Outpt) Discharge Summary ---
Discharge Summary Reason for Hosp/Final Diag: (1) Bone marrow disorder Status: Chronic Hospital Course & Plan: Bone marrow biopsy/aspiration completed today without problems. Departure Discharge to: Home, Self Care Discharge Instructions Home Meds Active Scripts Hydrocodone Bit/Acetaminophen (HYDROCODON-ACETAMINOPHEN 5-325) 1 Each Tablet, 1 EACH PO Q6H, #15 TAB 0 Refills Prov:GIA MORROW APRN METAL TRADES INSTRUCTOR-C 12/14/18 Oxygen (OXYGEN) Inha, 2 L INH DAILY, #2 L Prov:GIA MORROW APRN [employer]AL TRADES INSTRUCTOR-C 10/22/18 Reported Medications Acetaminophen (TYLENOL) 325 Mg Tablet, 325 MG PO TID, TAB 12/14/18 Ibuprofen (IBUPROFEN) 200 Mg Capsule, 1 CAP PO TID, CAPSULE 12/14/18 Diphenhydramine Hcl (BENADRYL) 25 Mg Capsule, 25 MG PO PRN, CAPSULE 08/28/18 Sodium Chloride (AYR SALINE) 50 Ml Drops, 50 ML NS PRN 08/28/18 Albuterol Sulfate 90 Mcg/Act (PROAIR HFA 90 MCG/ACT) 8.5 Gm Hfa.aer.ad, 2 PUFF IH Q4-6H, INHALER 09/20/17 Diet: Regular Activity: As Tolerated Special Instructions: You may remove the band-aid on 12/18/18, then you can shower. After showering, leave the incision open to air but leave the steristrips in place until they fall off on their own. Do not immerse the incision for 1 week. Follow up with Dr. Kendall Barton to discuss your bone marrow biopsy results in 2 weeks. JOSHUA NELSON MD Dec 17, 2018 09:43
[2018-12-17 09:45] VITALS: BP 111/72
--- NOTE | 2018-12-17 09:48 | Post Operative Progress Note ---
Post Operative Progress Note Date: Dec 17, 2018 Time: 09:44 Surgeon: Mychal Dictation number: [id number] Anesthesia: TIVA by Dr. Hamm Pre-Op Diagnosis: Bone marrow abnormality on MRI Post-Op Diagnosis: ROSEMARY Findings: Spicules seen in marrow Procedure(s): Bone marrow biopsy/aspiration Specimen Removed:(May be N/A): Bone marrow aspirate (20mL) Bone marrow core biopsies Complications: None Fluids: See anesthesia record Estimated Blood Loss: Minimal Date OP Note Dictated: Dec 17, 2018 Time OP Note Dictated: 09:45 JOSHUA NELSON MD Dec 17, 2018 09:48
[2018-12-17 10:15] VITALS: BP 103/74
[2018-12-17 10:20] VITALS: BP 98/72
[2018-12-17 10:21] VITALS: BP 106/72
--- NOTE | 2018-12-17 10:41 | NUR ---
0950 PATIENT WAS MOVED TO ROOM AIR AND IS TOLERATING THIS WELL. 0955 PATIENT BEGAN DRINKING JUICE AND EATING APPLSAUCE 1015 PATIENT STATES SHE IS DOING WELL AND IS WANTING TO GET GOING 1020 BEGAN DOING ORTHOSTATICS WITH PATIENT. SHE DENIES ANY DIZZINESS OR LIGHTHEADEDNESS. 102 PATIENT BEGAN STANDING. SHE STATES SHE FEELS SLIGHTLY DIZZY BUT STATES THIS IS NORMAL FOR HER WHEN IS SHE IS STANDING. SHE STATES THIS HAS BEEN GOING ON FOR MONTHS 103 IV WAS SALINE LOCKED
--- NOTE | 2018-12-17 11:24 | OPERATIVE REPORT 1 ---
EVENT DATE: December 17, 2018 SURGEON: David Horta MD ANESTHESIOLOGIST: Chris Hamm MD ANESTHESIA: TIVA. PREOPERATIVE DIAGNOSIS Bone marrow abnormality seen on magnetic resonance imaging. POSTOPERATIVE DIAGNOSIS Bone marrow abnormality seen on magnetic resonance imaging. PROCEDURE PERFORMED Bone marrow biopsy and aspiration. COMPLICATIONS None. CONDITION Stable. ESTIMATED BLOOD LOSS Minimal. INDICATIONS This is a 62-year old female referred to me by the oncologist but she had recently been found to have a bone marrow abnormality on MRI. They are requesting bone marrow biopsy to determine if her bone marrow is, in fact, abnormal. DESCRIPTION OF PROCEDURE Patient was brought into the operating room and placed in the right lateral decubitus position on the rney and her skin around her left posterior superior iliac spine was prepped and draped in sterile fashion. A time-out was completed and TIVA anesthesia was administered. I palpated her posterior superior iliac spine, anesthetized the skin and periosteum in this area with 1% lidocaine plain. I then made a small stab incision in the skin and used the aspiration needle and accessed the bone marrow cavity and aspirated 20 mL of bone marrow into the heparinated syringe. I passed it immediately to a dental laboratory technician apprentice, who processed it right away and found some spicules so I removed this needle and used the core needle and I removed two core samples of bone marrow and these were placed on Telfa and given to the dental laboratory technician apprentice. I then cleaned and dried her skin and placed Steri-Strips over the stab incision, followed by a Band-aid. She was then brought to the recovery room in good position, having tolerated the procedure without any apparent problems. MARKUS
--- NOTE | 2018-12-17 13:16 | NUR ---
1045 PATIENT BEGAN GETTING DRESSED. SHE STATES SHE IS FEELING WELL 1130 PATIENT VOIDED 1145 PATIENT BEGAN DRINKING MORE CRANBERRY JUICE 1230 PATIENT STATED SHE IS STILL DOING WELL 1300 TOOK PATIENT OUT. SHE MET SILVIA IN THE WAITING ROOM FOR A RIDE. LUNGS ARE CLEAR. HER PAIN REMAINS 10/10 FROM CHRONIC BACK/NECK PAIN. HYPERACTIVE BOWEL SOUNDS. DRESSING REMAINS DRY AND INTACT. SEE DISCHARGE ASSESSMENT.
[2018-12-18] MEDS ORDERED: HYDR-385 PO (13:50)
== END 2018-12-17 13:00 | disposition home or self-care (01) ==
LOC: OR 02:29
PROVIDERS: ATTEND Surgery
DX: M89.9 Disorder of bone, unspecified (principal)
CPT/HCPCS: 38222; 88305; J2001; J2250; J2704

== ENCOUNTER → 2019-01-04 | Outpatient (CLI) | payer MEDICARE, MEDICAID ==
[2015-05-19 08:28] VITALS: BMI 17.2
== END ==
LOC: LAB 08:17
PROVIDERS: ATTEND Nurse Practitioner Family
DX: R11.2 Nausea with vomiting, unspecified (principal); R55 Syncope and collapse
CPT/HCPCS: 83630; 87045; 87324; 87338; 87449; G0328; 82274

== ENCOUNTER → 2019-01-29 | Outpatient (CLI) | payer MEDICARE, MEDICAID ==
[2015-05-19 08:28] VITALS: BMI 17.2
[2019-01-29 16:56] LABS: PLATELET COUNT, AUTOMATED 340 K/uL (150-450)
== END ==
LOC: LAB 16:28
PROVIDERS: ATTEND Nurse Practitioner Family
DX: K92.0 Hematemesis (principal); R19.7 Diarrhea, unspecified
CPT/HCPCS: 36415; 82040; 82247; 82310; 82374; 82435; 82565; 82947; 84075; 84132; 84155; 84295; 84443; 84450; 84460; 84520; 85025

== ENCOUNTER → 2019-02-10 | Outpatient (CLI) | payer MEDICARE, MEDICAID ==
[2015-05-19 08:28] VITALS: BMI 17.2
== END ==
LOC: LAB 09:13
PROVIDERS: ATTEND Nurse Practitioner Family
DX: R55 Syncope and collapse (principal); R23.2 Flushing; R11.2 Nausea with vomiting, unspecified
CPT/HCPCS: 82384; 83497; 83835

== ENCOUNTER → 2019-02-12 | Outpatient (CLI) | payer MEDICARE, MEDICAID ==
[2015-05-19 08:28] VITALS: BMI 17.2
== END ==
LOC: LAB 11:24
PROVIDERS: ATTEND Nurse Practitioner Family
DX: E87.6 Hypokalemia (principal)
CPT/HCPCS: 36415; 82310; 82374; 82435; 82565; 82947; 84132; 84295; 84520

== ENCOUNTER → 2019-03-23 | Outpatient (CLI) | payer MEDICARE, MEDICAID ==
[2015-05-19 08:28] VITALS: BMI 17.2
[~2019-03-23] MED LIST changes: +GABA-549 PO; +OMEP40CA48 PO; -PROM12.556 PO; +PROM12.557 PO; +SUCR1TAB51 PO
[2019-03-23 11:33] LABS: PLATELET COUNT, AUTOMATED 285 K/uL (150-450)
--- NOTE | 2019-03-23 13:44 | RADIOLOGY IMAGING REPORT ---
FAC[place] [facility] [place] PATIENT NAME: Candy Wilder : 1955 MR: [id number] V: [id number] EXAM DATE: ORDERING PHYSICIAN: GIA MORROW TECHNOLOGIST: [place] [facility] [place] : 1955 Visit/Account:[id number] Date of Sevice: 03/23/2019 Exam type: ANKLE 2 VIEW BILATERAL History: pain bilateral lateral foot and ankle Comparison: None. Findings: Two views of the right ankle reveal no evidence of acute fracture dislocation or significant arthriti c change. Two views of the left ankle reveal no evidence of acute fracture-dislocation or significant arthritic change IMPRESSION: 1. No osteoarticular abnormality of the ankles seen Report Dictated By: Lolly Ghosh MD at 03/23/2019 1:36 PM Report E-Signed By: Lolly Ghosh MD at 03/23/2019 1:37 PM WSN:[email or web address]
--- NOTE | 2019-03-23 13:54 | RADIOLOGY IMAGING REPORT ---
[facility] PATIENT NAME: Candy Wilder : 1955 MR: [id number] V: [id number] EXAM DATE: ORDERING PHYSICIAN: GIA MORROW TECHNOLOGIST: Location: [facility] - [place] Patient: Candy Wilder : 1955 Visit/Account:[id number] Date of Sevice: 03/23/2019 Exam type: Bilateral feet, two views History: pain bilateral lateral foot and ankle Comparison: Bilateral ankles performed today. Findings: Two views of the left foot demonstrates mild hallux valgus deformity at the left first MTP joint. Th ere is no evidence of acute fracture or dislocation. Two views of the right foot demonstrates no evidence of acute fracture-dislocation or significant art hritic change. IMPRESSION: 1. There is a mild hallux valgus deformity involving the left first MTP joint Report Dictated By: Lolly Ghosh MD at 03/23/2019 1:45 PM Report E-Signed By: Lolly Ghosh MD at 03/23/2019 1:47 PM WSN:[email or web address]
== END ==
LOC: LAB 11:15
PROVIDERS: ATTEND Nurse Practitioner Family
DX: M20.12 Hallux valgus (acquired), left foot (principal); M25.50 Pain in unspecified joint; M79.671 Pain in right foot; M25.571 Pain in right ankle and joints of right foot; M25.572 Pain in left ankle and joints of left foot
CPT/HCPCS: 36415; 82040; 82247; 82310; 82374; 82435; 82565; 82607; 82746; 82947; 84075; 84132; 84155; 84295; 84450; 84460; 84520; 85025; 85651; 86038; 86140; 86200; 86430

== ENCOUNTER → 2019-03-24 | Outpatient (CLI) | payer MEDICARE ==
[2015-05-19 08:28] VITALS: BMI 17.2
--- NOTE | 2019-03-31 10:05 | RT HOLTER TEST ---
FACILITY: [facility] - [place] PATIENT NAME: ROHAN PALOMINO : [id number] MR: [id number] V: [id number] EXAM DATE: ORDERING PHYSICIAN: GIA MORROW TECHNOLOGIST: ADILENE Hook-up date: 2019-03-24 10:20:00 Duration: 19:23:00 Test Indications: dizziness Medications: N/A 17956 QRS complexes 23 Ventricular ectopics which represent <1 % of total QRS comp. 9 Supraventricular ectopics which represent <1 % of total QRS comp. * Paced QRS complexes which represent % of total QRS comp. VENTRICULAR ECTOPY 23 Isolated 0 Bigeminal Cycles 0 Couplets 0 Runs 0 Beats in Runs * Beats LONGEST at * BPM at :: -- * Beats FASTEST at * BPM at :: -- SUPRAVENTRICULAR ECTOPY 9 Isolated 0 Couplets 0 Runs 0 Beats in Runs * Beats LONGEST at * BPM at :: -- * Beats FASTEST at * BPM at :: -- HEART RATES 52 MIN at 11:37:42 2019-03-24 70 AVG 100 MAX at 13:35:16 2019-03-24 LONGEST RR 1.600 secs at 11:37:37 2019-03-24 S-T LEVELS Channel 1 -12.800 mm MIN at 10:20:00 2019-03-24 -12.800 mm MAX at 10:20:00 2019-03-24 Channel 2 -12.800 mm MIN at 10:20:00 2019-03-24 -12.800 mm MAX at 10:20:00 2019-03-24 Channel 3 -12.800 mm MIN at 10:20:00 2019-03-24 -12.800 mm MAX at 10:20:00 2019-03-24 Rare ventricular ectopy. No couplets, triplets, runs. Rare supraventricular ectopy. No couplets, triplets, runs. No pauses of more than two (2) seconds were recorded. Adequate acquisition time was only 19.5 hours. Confirmed by JOE MCGOWAN ([id number]) on 03/31/2019 10:02:39 AM Referred By: Overread By: JOE MCGOWAN
== END ==
LOC: RESP 07:07
PROVIDERS: ATTEND Nurse Practitioner Family
DX: R42 Dizziness and giddiness (principal)
CPT/HCPCS: 93225; 93226

== ENCOUNTER → 2019-04-13 | Outpatient (CLI) | payer MEDICAID, MEDICARE ==
[2015-05-19 08:28] VITALS: BMI 17.2
[~2019-04-13] MED LIST changes: +BARIUM SULFATE 176 GM BTL PO ONE; +BARIUM SULFATE 340 GM POWD ONE
== END ==
LOC: RAD 02:08
PROVIDERS: ATTEND Surgery
DX: Z02.9 Encounter for administrative examinations, unspecified (principal)

== ENCOUNTER → 2019-04-13 | Outpatient (CLI) | payer MEDICARE ==
[2015-05-19 08:28] VITALS: BMI 17.2
[~2019-04-13] MED LIST changes: -BARIUM SULFATE 176 GM BTL PO ONE; -BARIUM SULFATE 340 GM POWD ONE
--- NOTE | 2019-04-13 16:18 | RADIOLOGY IMAGING REPORT ---
FACILITY: [facility] PATIENT NAME: Candy Wilder : 1955 MR: [id number] V: [id number] EXAM DATE: ORDERING PHYSICIAN: JOSHUA NELSON TECHNOLOGIST: Location: [facility] - [place] Patient: Candy Wilder : 1955 Visit/Account:[id number] Date of Sevice: 04/13/2019 Upper GI and small bowel follow-through: HISTORY: FINDINGS: Process Operator film demonstrates nonspecific bowel gas pattern without evidence of ileus, obstructio n or free air. Patient was given effervescent crystals and thick barium to drink. This was followed by the ingestion of thin barium. Esophageal mucosa and motility is normal. There is no evidence of mass, web or stricture. There is no hiatal hernia. No gastroesophageal reflux occurred during the examination. Gastric mucosa is normal. There is no ulcer identified. No mass. Duodenal bulb and duodenum are wi thin normal limits. Serial imaging was performed to evaluate the small bowel. Contrast reaches the colon at approximatel y 2 hours. Small bowel fold pattern is normal. There is no focal abnormality. No stricture. No co mpression or distortion of bowel loops. There is no evidence of bowel obstruction. DAP: 899.77 [id number] Images archived to PACS: 24 IMPRESSION: 1. Normal upper GI. There is no evidence of obstruction and no focal mucosal abnormality. 2. Unremarkable small bowel follow-through. There is no evidence of stricture or obstruction. Fold pattern is unremarkable. Report Dictated By: Rani Gutierrez MD at 04/13/2019 3:58 PM Report E-Signed By: Rani Gutierrez MD at 04/13/2019 4:09 PM WSN:[email or web address]
== END ==
LOC: LAB 12:52
PROVIDERS: ATTEND Surgery
DX: K92.0 Hematemesis (principal); R11.2 Nausea with vomiting, unspecified; K62.5 Hemorrhage of anus and rectum; R10.13 Epigastric pain
CPT/HCPCS: 74245; 82274; 82705; 83630; 87045; 87177; 87205; 87324; 87449